=== PATIENT | female | born 1935 | race Caucasian/White ===

== ENCOUNTER 2020-11-25 17:59 | Inpatient (IN) | payer MEDICARE, OTHER ==
[~2020-11-25] VITALS: Ht 152.4 cm; Wt 51.7 kg
[~2020-11-25 17:59] MED LIST: ASPI-485 PO; CARB1TAB2 PO; LAMO100T8 PO; LEVO112T5 PO; METO-236 PO; OLAN5TAB5 SL; ROPI0.5T PO; SERT50TA PO; SIMV20TA19 PO; TOPI100T8 PO; TRIA1CAP3 PO; VIT1CAPS40 PO
--- NOTE | 2020-11-25 18:59 | PCM.EKG ---
[facility] Test Date: 2020-11-25 Test Time: 18:52:16 Pat Name: RADHA GUTIÉRREZ Department: Patient ID: [facility]-[id number] Room: 212 Gender: F Unit Control Worker: ARIE : [id number] Requested By: RENARD HIGGINS Order Number: [id number] Reading MD: Lisha Higgins Measurements Intervals [place] Rate: 69 P: 155 VT: 235 QRS: -4 QRSD: 108 T: 75 QT: 429 QTc: 460 Interpretive Statements Sinus or ectopic atrial rhythm Prolonged VT interval Probable LVH with secondary repol abnrm Compared to ECG 04/25/2019 20:21:27 Ectopic atrial rhythm now present First degree AV block now present Sinus rhythm no longer present T-wave abnormality no longer present Possible ischemia no longer present Prolonged QT interval no longer present Electronically Signed On 11-26-2020 4:31:14 [employer] by Lisha Higgins Please click the below link to view image of tracing.
[2020-11-25 19:13] VITALS: BP 156/68
[2020-11-25 19:17] LABS: BASOPHIL # 0.1 10^3/uL (0.0-0.1); EOSINOPHIL # 0.1 10^3/uL (0.0-0.2); EOSINOPHIL % 2.1 % (0.0-5.0); LYMPHOCYTES # 1.85 10^3/uL1 (1.0-4.8); LYMPHOCYTES % 30.1 % (24.0-44.0); MEAN CORP HGB 30.8 pg (26-34); MONOCYTES # 0.6 10^3/uL (0.3-0.8); MONOCYTES % 9.6 % (5.0-12.0); NEUTROPHIL # 3.5 10^3/uL (1.8-7.7); NEUTROPHILS % 56.7 % (41.0-85.0); PLATELET COUNT 173 10^3/uL (150-400); RED CELL DISTRIBUTION WIDTH 14.4 % (11.5-14.5)
--- NOTE | 2020-11-25 19:28 | NUR ---
URINE COLLECTED AND TAKEN TO LAB
[2020-11-25 19:43] LABS: ALANINE AMINOTRANSFERASE(ML) 18 U/L (12-78); ALKALINE PHOSPHATASE 156 U/L (50-136); ASPARTATE AMINO TRANSFERASE 24 U/L (0-35); CARBON DIOXIDE 26.3 mmol/L (20.0-32); CHOLESTEROL 180 mg/dL (120-240); GLUCOSE 120 mg/dL (70-110); HDL CHOLESTEROL 84 mg/dL (32-96)
[2020-11-25] MEDS ORDERED: HYDR12.58 PO (19:45)
[2020-11-25] MEDS ORDERED: FLUT16SP (19:45)
[2020-11-25] MEDS ORDERED: LEVO125T6 PO (19:45)
[2020-11-25] MEDS ORDERED: LAMO25TA9 PO (19:45)
[2020-11-25] MEDS ORDERED: TOPI100T8 PO (19:45)
[2020-11-25] MEDS ORDERED: LAMO100T8 PO (19:45)
[2020-11-25] MEDS ORDERED: PRIM50TA34 PO (19:45)
[2020-11-25] MEDS ORDERED: BUSP5TAB2 PO (19:45)
[2020-11-25] MEDS ORDERED: CARB1TAB22 PO (19:45)
[2020-11-25 19:50] LABS: APPEARANCE,URINE CLEAR (CLEAR); BILIRUBIN,URINE NEGATIVE (NEGATIVE); UA COLOR YELLOW (YELLOW); UROBILINOGEN,URINE NORMAL (NEGATIVE)
[2020-11-25 20:15] VITALS: BP 150/68
--- NOTE | 2020-11-25 20:16 | ER.PDOC ---
General Chief Complaint: Medical Clearance Stated Complaint: MED CLEARANCE Time seen by MD: 20:13 Source: patient, family Exam Limitations: no limitations History of Present Illness Initial Comments Family states patient is becoming increasingly combative. She will only take her routine medications sporadically. Timing/Duration: week Associated Symptoms: Frustrated, Agitated, Hostile Allergies: Coded Allergies: Penicillins (Verified Allergy, Unknown, Rash, 04/25/19) adhesive tape (Verified Allergy, Unknown, 04/25/19) bacitracin (Verified Allergy, Unknown, 04/25/19) codeine (Verified Allergy, Unknown, 04/25/19) lisinopril (Verified Allergy, Unknown, 04/25/19) tramadol (Verified Allergy, Unknown, 04/25/19) Home Meds Reported Medications Levothyroxine Sodium (LEVOTHYROXINE SODIUM) 125 Mcg Tablet, 1 TAB PO DAILY, #30 TAB 5 Refills 11/25/20 Lamotrigine (LAMOTRIGINE) 100 Mg Tablet, 1 TAB PO DAILY, #30 TAB 11/25/20 Lamotrigine (LAMOTRIGINE) 25 Mg Tablet, 2 TAB PO HS, #60 TAB 11/25/20 Topiramate (TOPIRAMATE) 100 Mg Tablet, 1 TAB PO BID for 30 Days, #60 TAB 0 Refills 11/25/20 Primidone (MYSOLINE) 50 Mg Tablet, 1 TAB PO BID for 30 Days, #30 TAB 0 Refills 11/25/20 Fluticasone Propionate (FLUTICASONE PROPIONATE) 16 Gm [place].susp, 1 SPR NA DAILY, #1 INHALER 11 Refills 11/25/20 Carbidopa/Levodopa (CARBIDOPA-LEVODOPA 25-100 TAB) 1 Each Tablet, 1 TAB PO TID for 30 Days, #90 TAB 0 Refills 11/25/20 Buspirone Hcl (BUSPIRONE HCL) 5 Mg Tablet, 1 TAB PO BID, #60 TAB 2 Refills 11/25/20 Simvastatin (SIMVASTATIN) 20 Mg Tablet, 1 TAB PO HS, #30 TAB 5 Refills 04/25/19 Vit C/E/Zn/Coppr/Lutein/Zeaxan (Preservision Areds 2 Softgel) 1 Each Capsule, 1 EACH PO DAILY24, CAPSULE 04/25/19 Metoprolol Succinate (METOPROLOL SUCCINATE) 25 Mg Tab.er.24h, 1 TAB PO DAILY, #30 TAB 5 Refills 04/25/19 Aspirin (ASPIR 81) 81 Mg Tablet.dr, 1 TAB PO DAILY, #30 TAB 5 Refills 04/25/19 Discontinued Reported Medications Hydrochlorothiazide (HYDROCHLOROTHIAZIDE) 12.5 Mg Tablet, 1 TAB PO DAILY, #30 TAB 5 Refills 11/25/20 Ropinirole Hcl (REQUIP) 0.5 Mg Tablet, 1 TAB PO TID, #30 TAB 1 Refill 04/25/19 Topiramate (TOPIRAMATE) 100 Mg Tablet, 1 TAB PO BID, #60 TAB 1 Refill 04/25/19 Lamotrigine (LAMOTRIGINE) 100 Mg Tablet, 125 MG PO DAILY24, TABLET 04/25/19 Levothyroxine Sodium (LEVOTHYROXINE SODIUM) 112 Mcg Tablet, 1 TAB PO DAILY, #30 TAB 5 Refills 04/25/19 Discontinued Scripts Olanzapine (ZYPREXA ZYDIS) 5 Mg Tab.rapdis, 5 MG SL HS for 30 Days Prov:SHIRA 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 05/15/19 Past Medical History Medical History: cardiac problems, high cholesterol, hypertension, thyroid disease Surgical History: cholecystectomy, hysterectomy, pacemaker/ICD Family History Significant Family History: no pertinent family hx Social History Smoking: non-smoker Alcohol Use: none Drug Use: none Review of Systems Constitutional: denies no symptoms reported, denies see HPI, denies chills, denies diaphoresis, denies fever, denies malaise, denies weakness, denies other EENTM: denies no symptoms reported, denies see HPI, denies eye pain, denies blurred vision, denies tearing, denies double vision, denies ear pain, denies ear discharge, denies nose pain, denies nose congestion, denies throat pain, denies throat swelling, denies mouth pain, denies mouth swelling, denies other Respiratory: denies no symptoms reported, denies see HPI, denies cough, denies orthopnea, denies shortness of breath, denies stridor, denies wheezing, denies other Cardiovascular: denies no symptoms reported, denies see HPI, denies chest pain, denies edema, denies palpitations, denies syncope, denies other Gastrointestinal: denies no symptoms reported, denies see HPI, denies abdominal pain, denies constipation, denies diarrhea, denies nausea, denies vomiting, denies other Genitourinary: denies no symptoms reported, denies see HPI, denies discharge, denies dysuria, denies frequency, denies hematuria, denies pain, denies other Musculoskeletal: denies no symptoms reported, denies see HPI, denies back pain, denies gout, denies joint pain, denies joint swelling, denies muscle pain, denies muscle stiffness, denies neck pain, denies other Skin: denies no symptoms reported, denies see HPI, denies change in color, denies change in hair/nails, denies dryness, denies lesions, denies lumps, denies rash, denies other Psychiatric/Neurological: seizure (this morning) All Other Systems: Reviewed and Negative Physical Exam General Appearance: No acute distress, Alert EENT: No nystagmus, PERRLA, EOM's intact Neck: Non-Tender, Full Range of Motion, Supple, Normal Inspection Respiratory: lungs clear, normal breath sounds, no respiratory distress, no accessory muscle use Cardiovascular: Regular Rate, Rhythm, No Murmur Gastrointestinal: Normal Bowel Sounds, Non Tender Extremities: Non-Tender, No Evidence of Trauma, No Edema Neurological/Psychiatric: Alert, Normal Mood/Affect, Calm Appearance/Memory/Insight: Appropriate Appearance, Neat Behavior/Eye Contact/Speech: Cooperative, Good Eye Contact Thoughts/Hallucinations: No Apparent Hallucination, Other (oriented x 2) Skin: Normal Color, Warm/Dry Results/Orders Results/Orders Orders - RENARD TORO DO Cbc With Auto Diff (11/25/20 18:39) Comprehensive Metabolic Panel (11/25/20 18:39) Urinalysis (11/25/20 18:39) Thyroid Stimulating Horm(Ml) (11/25/20 18:39) Drug Scrn Med W Confirmation (11/25/20 18:39) Vitamin D, 25 Hydroxy (11/25/20 18:39) RPR (11/25/20 18:39) Hemoglobin A1c(Ml) (11/25/20 18:39) Lipid Panel(Ml) (11/25/20 18:39) Troponin I (11/25/20 18:39) Creatine Kinase (11/25/20 18:39) Creatine Kinase Mb (11/25/20 18:39) Probnp B-Type Department Store General Manager (11/25/20 18:39) Alcohol(Ml) (11/25/20 18:39) Acetaminophen(Ml) (11/25/20 18:39) Salicylate(Ml) (11/25/20 18:39) Ekg-Routine (11/25/20 18:39) Urine Culture (11/25/20 19:00) Routine Vital Signs (11/25/20 20:57) Regular Diet (11/26/20 Breakfast) Intake & Output (11/25/20 20:57) Up Ad Fauzia/Low Risk Vte (11/25/20 20:57) Up In Chair (11/25/20 20:57) Admit Orders (11/25/20 20:57) Physician Consult (11/25/20 20:57) Vital Signs Date Time Temp Pulse Resp B/P (MAP) Pulse Ox O2 Delivery O2 Flow Rate FiO2 11/25/20 20:15 97.9 66 16 150/68 (95) 97 Room Air 11/25/20 19:13 97.9 67 16 156/68 (97) 99 Room Air 11/25/20 19:13 97.9 67 16 99 11/25/20 19:13 97.9 67 16 Laboratory Tests Test 11/25/20 19:00 11/25/20 19:10 Urine Collection Type VOID Urine Color YELLOW (YELLOW) Urine Appearance CLEAR (CLEAR) Urine Bilirubin NEGATIVE MG/DL (NEGATIVE) Urine Ketones NEGATIVE (NEGATIVE) Urine Specific [place] 1.010 (1.005-1.035) Urine pH 6.0 (5.0-6.0) Urine Protein TRACE (NEGATIVE) H Urine Urobilinogen NORMAL (NEGATIVE) Urine Nitrate NEGATIVE (NEGATIVE) Urine Leukocyte Esterase SMALL (NEGATIVE) Urine Blood NEGATIVE (NEGATIVE) Urine RBC 0-2 RBC/HPF (NONE SEEN) Urine WBC 10-25 WBC/HPF (0-2) H Urine Squamous Epithelial Cells FEW #/HPF (FEW) Urine Bacteria FEW (NONE SEEN) H Urine Glucose NORMAL (NEGATIVE) Urine Opiates Screen NEGATIVE (c/o300ng/mL) Urine Methadone Screen NEGATIVE (c/o300ng/mL) Urine Barbiturates Screen PRESUMPTIVE POSITIVE Urine Phencyclidine Screen NEGATIVE (c/o 25ng/mL) Ur Amphetamine/Methamphetamine NEGATIVE (gh8592zy/mL) Urine MDMA Screen (Ecstasy) NEGATIVE (c/o300ng/mL) Urine Benzodiazepines Screen NEGATIVE (c/o200ng/mL) Urine Cocaine Metabolite Screen NEGATIVE (c/o300ng/mL) Ur Tetrahydrocannabinol (THC) Scrn NEGATIVE (c/o 50ng/mL) White Blood Count 6.1 10^3/uL (4.5-11.0) Red Blood Count 4.32 10^6/uL (4.00-5.20) Hemoglobin 13.3 g/dL (12.0-15.0) Hematocrit 38.1 % (36.0-46.0) Mean Corpuscular Volume 88.2 fL (78-100) Mean Corpuscular Hemoglobin 30.8 pg (26-34) Mean Corpuscular Hemoglobin Concent 34.9 g/dL (33-36.5) Red Cell Distribution Width 14.4 % (11.5-14.5) Platelet Count 173 10^3/uL (150-400) Mean Platelet Volume 10.1 fL (7.8-11.0) Neutrophils (%) (Auto) 56.7 % (41.0-85.0) Lymphocytes (%) (Auto) 30.1 % (24.0-44.0) Monocytes (%) (Auto) 9.6 % (5.0-12.0) Neutrophils # (Auto) 3.5 10^3/uL (1.8-7.7) Lymphocytes # (Auto) 1.85 10^3/uL1 (1.0-4.8) Monocytes # (Auto) 0.6 10^3/uL (0.3-0.8) Absolute Immature Granulocyte (auto 0.03 10^3 u/L (0-2) Absolute Eosinophils (auto) 0.1 10^3/uL (0.0-0.2) Immature Granulocytes % 0.50 % (0.00-0.50) Eosinophils % 2.1 % (0.0-5.0) Basophils % 1.0 % (0.0-0.2) H Basophils # 0.1 10^3/uL (0.0-0.1) Sodium Level 129 mmol/L (132-145) #L Potassium Level 3.0 mmol/L (3.6-5.2) L Chloride Level 92.0 mmol/L (96-109) L Carbon Dioxide Level 26.3 mmol/L (20.0-32) Anion Gap 13.7 Blood Urea Nitrogen 18 mg/dL (7-18) Creatinine 1.06 mg/dL (0.59-1.40) Estimated GFR () 59.5 (>/=60) Est GFR (CKD-EPI)(Non-Afr English) 49.2 (>/=60) BUN/Creatinine Ratio 16.0 Glucose Level 120 mg/dL (70-110) H Hemoglobin A1c 5.4 % (0-5.7) Calcium Level 8.0 mg/dL (8.4-10.5) L Total Bilirubin 0.3 mg/dL (0.2-1.0) Aspartate Amino Transferase (AST) 24 U/L (0-35) Alanine Aminotransferase (ALT) 18 U/L (12-78) Alkaline Phosphatase 156 U/L (50-136) H Total Creatine Kinase 124 U/L (26-192) Creatine Kinase MB 3.1 ng/mL (0.5-3.6) Troponin I < 0.02 ng/mL (0.00-0.05) Pro-B-Type Natriuretic Peptide 878 pg/mL (0-450) H Total Protein 7.4 g/dL (6.4-8.2) Albumin 3.9 g/dL (3.4-5.0) Globulin 3.5 Albumin/Globulin Ratio 1.114 Triglycerides Level 144 mg/dL (20-200) Cholesterol Level 180 mg/dL (120-240) LDL Cholesterol, Calculated 67.2 VLDL Cholesterol, Calculated 28.8 HDL Cholesterol 84 mg/dL (32-96) Cholesterol Ratio (LDL/HDL) 0.8 Cholesterol/HDL Ratio 2.025341 Thyroid Stimulating Hormone (TSH) 0.124 mIU/mL (0.358-3.740) Salicylates Level < 2.8 mg/dL (2.8-20.0) L Acetaminophen Level < 10 ug/mL (10-30) L Serum Alcohol < 3 mg/dL (0-50) Progress Progress sodium slightly low 129; TSH suppressed 0.124 EKG/XRAY/CT/US EKG Comments: sinus rhythm, VR 69, no acute STT changes Consult/PCP Time Consult/PCP Called: 20:57 Consult/PCP: Dr. Mosqueda Reason/Comments: will admit BHU, consult hospitalist ER DEPART Departure Time of Disposition: 20:57 Disposition: 09 ADMITTED INPATIENT Impression: Primary Impression: Combative behavior Additional Impressions: Delusional disorder Hyperthyroidism Condition: Stable Referrals: MICHELLE LEE MD (PCP) PRIMARY CARE PROVIDER Duration or Time Spent with Pa: 20 min Problem Qualifiers RENARD TORO DO Nov 25, 2020 20:16
--- NOTE | 2020-11-25 20:21 | NUR ---
UP TO RESTROOM PATIENT AMBULATED TO RESTROOM WITH WALKER WITH GRANDDAUGHTER, PATIENT BACK TO ROOM, NO NEEDS VOICED BY PATIENT OR GRANDDAUGHTER
[2020-11-25 21:20] VITALS: BP 148/68
--- NOTE | 2020-11-25 22:05 | NUR ---
ARRIVAL PATIENT ARRIVED ON UNIT FROM [facility] ACCOMPANIED BY SCARLETT ALBARADO R.N VIA WHEELCHAIR, PATIENT IS INVOLUNTARY STATUS.
[2020-11-25 22:15] VITALS: BP 160/72
--- NOTE | 2020-11-25 22:43 | PRM.CONS ---
CONSULTATION Problems: (1) Hyponatremia with decreased serum osmolality ICD Code: E87.1 - Hypo-osmolality and hyponatremia SNOMED: 481716567 (2) Hyponatremia syndrome Status: Chronic ICD Code: E87.1 - Hypo-osmolality and hyponatremia SNOMED: 3823660 (3) Hypokalemia due to loss of potassium Status: Chronic ICD Code: E87.6 - Hypokalemia SNOMED: 18913102 (4) Hypochloremia Status: Chronic ICD Code: E87.8 - Other disorders of electrolyte and fluid balance, not elsewhere classified SNOMED: 14420020 CONSULTATION patient is an 85-year-old female with history of diuretics intake including hydrochlorthiazide. Has mild hyponatremia along with hypokalmeia and hypochloremia due to HCTZ. will stop and discontinue hydrochlorthiazide and follow up with labs. most of the electrolyte abnormalities are due to diuretics. It should resolve with normal PO and take. Had a history of seizure disorder with side effects of Topamax. Will consider stopping Topamax and starting on Keppra. First dose will be 1 g IV times one only. Then we will start Keppra 500 mg twice a day and arrange a follow up with neurology if possible. since the TSH is slightly low we will decrease the levothyroxine down to 100 g and arrange follow up with primary care physician as an outpatient for follow-up and management of hypothyroidism. No further work up is warranted at this time. Full consultation and plans d/w MAG[facility] [place] please detailed consult notes from today final consult discussed 11/26/2020 at 9:13 am EWA TO MD Nov 25, 2020 22:43
--- NOTE | 2020-11-25 23:15 | NUR ---
dr teixeira, dr cano, hospitalist. dr teixeira and dr cano notified patient arrival to unit, reviewed potassium 3.0 and sodium 129. family who had brought patient in to e.r. reported patient has epilepsy, last seizure this am and lasted approximately 1.5 minutes.
[2020-11-26] MEDS ORDERED: BUSPAR ONE
[2020-11-26] MEDS ORDERED: SINEMET ONE (00:01)
[2020-11-26] MEDS ORDERED: MYSOLINE ONE (00:01)
[2020-11-26] MEDS ORDERED: LAMICTAL PO ONE (00:30)
[2020-11-26] MEDS ORDERED: MYSOLINE PO ONE (00:30)
[2020-11-26] MEDS ORDERED: SINEMET 25/100 PO ONE (00:30)
[2020-11-26] MEDS ORDERED: BUSPAR PO SCH (00:30)
[2020-11-26] MEDS ORDERED: BUSPAR PO ONE (00:30)
--- NOTE | 2020-11-26 01:00 | NUR ---
ADMISSION 85 YEAR OLD FEMALE ADMITTED INVOLUNTARY FOR DELUSIONAL DISORDER, PATIENT FROM [facility] AND WILL RETURN THERE, PATIENT UNSURE WHY SHE IS HERE, VOICES SOME PEOPLE THINK SHE IS HITTING BUT SHE IS JUST PATTING THEM. PATIENT HAS MEDICAL HX OF EPILEPSY FROM [facility] , LAST SEIZURE THIS AM AND LASTED APPROX. 1.5 MINUTES. PATIENT USES WALKER, IS DEMANDING, DIFFICULT TO PLEASE. PER REPORT PATIENT HAS NOT BEEN WANTING TO TAKE MEDS, THINKS SHE IS BEING POISONED, HAS BEEN HITTING STAFF AND RESIDENTS, THROWING HER WALKER, PULLING ON LANYARD AROUND STAFFS NECK. PATIENT DENIES ALL. PATIENTS FAMILY WORKS AT FACILITY SHE IS FROM. PATIENT HAS OOHDNR.FROM FACILITY. PATIENT IS ORIENTED X 3 BUT IS FORGETFUL.
[2020-11-26] MEDS ORDERED: SYNTHROID ONE ×2 (06:11→11:06)
[2020-11-26] MEDS: SYNTHROID PO SCH ×2 (06:12→09:00)
[2020-11-26 09:00] VITALS: BP 120/66
[2020-11-26] MEDS ORDERED: LAMICTAL PO SCH ×3 (09:00→21:00)
[2020-11-26] MEDS ORDERED: SINEMET 25/100 PO SCH (09:00)
[2020-11-26] MEDS ORDERED: KEPPRA PO STA (09:23)
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
[2020-11-26] MEDS: ASPIRIN EC PO SCH (10:00)
[2020-11-26] MEDS: TOPROL XL PO SCH (10:00)
[2020-11-26] MEDS: BUSPAR PO SCH ×2 (10:01→21:30)
[2020-11-26] MEDS: SINEMET 25/100 PO SCH ×3 (10:01→21:32)
[2020-11-26] MEDS ORDERED: POTASSIUM CHLORIDE PO STA (10:10)
[2020-11-26] MEDS: FLONASE NS SCH (11:07)
--- NOTE | 2020-11-26 15:42 | NUR ---
MMSE SCORE: 19: FINDINGS INDICATE MILD IMPAIRMENT. PT UNABLE TO COMPLETE WRITING ASSESSMENTS DUE TO TREMORS. Addendum: 11/29/20 at 1629 by Evangelina CHAUHAN Amended: Links added.
--- NOTE | 2020-11-26 16:01 | NUR ---
GMAS SCORE : FINDING INDICATE MILD DEPRESSION. Addendum: 11/29/20 at 1629 by Evangelina Mary LMSW SW Amended: Links added.
--- NOTE | 2020-11-26 16:30 | NUR ---
PIRP P: ALTERED THOUGHT PROCESS, RISK FOR FALLS, NON COMPLIANCE WITH MEDICATION I: PROVIDE MEDICATIONS ORDERED BY PHYSICIAN WITH EXPLANATION OF NEED PURPOSE.ENCOURAGE ATTENDANCE WITH GROUP THERAPY. PROVIDE SAFETY EQUIPMENT FOR AMBULATING. PROVIDE Q 15 MIN CHECKS. MONITOR PT FOR DEPRESSION, ANXIETY. 1:1 ALLOWING PT TO EXPRESS THOUGHTS AND FEELINGS. RE ORIENT AND RE DIRECT PT NEEDED. R: PATIENT HAS TAKEN ALL MEDICATIONS ORDERED HAS BEEN COOPERATIVE. PATIENT HAS ATTENDED ALL GROUPS TODAY HAS BEEN VERY COOPERATIVE WITH STAFF. PATIENT HAS TAKEN WALKER WITH HER EVERYWHERE SHE HAS WALKED. PT TENDS TO BE INTRUSIVE IN OTHER PTS BUSINESS. PT HAS BEEN ABLE TO BE RE DIRECTED AND RE ORIENTED NEEDED. P: PLAN TO DISCHARGE PT BACK TO [facility]. CONTINUE WITH PLAN OF CARE.
[2020-11-26 19:41] VITALS: BP 154/78
[2020-11-26] MEDS: KEPPRA PO SCH (21:31)
[2020-11-26] MEDS: LIPITOR PO SCH (21:32)
[2020-11-26] MEDS: KLOR-CON 10 PO SCH (21:32)
--- NOTE | 2020-11-27 04:51 | NUR ---
P.I.R.P. P. NON COMPLIANCE WITH MEDICATIONS. BEHAVIORS I. PROVIDE EVERY 15 MINUTE OBSERVATION, PROVIDE SAFE ENVIRONMENT, PROVIDE MEDICATIONS ORDERED PER MD, PROVIDE 1:1 INTERVENTION TO ALLOW PATIENT TO EXPRESS FEELINGS, REDIRECT NEEDED. PROVIDE TASK ORIENTED GROUP ACTIVITY AND ENCOURAGE PARTICIPATION. R. PATIENT TOOK MEDS ORDERED, DID LOOK OVER EACH MED AND DISCUSSED PURPOSE OF EACH. PATIENT ATTENDED GROUP ACTIVITY. HAS BEEN PLEASANT AND COOPERATIVE, IS ORIENTED. INTRUSIVENESS CONTINUES BUT NOTED DECREASED THIS SHIFT. PATIENT WOULD OCCASIONALLY TALK TO OTHER PATIENT ABOUT FINGER NAIL BITING AND BEING NERVOUS. NO PRN MEDS THIS SHIFT. NO BEHAVIORS, CONTINUES TO DECLINE TO WEAR YELLOW NON SKID SOCKS VOICING THEY HURT HER FEET. PATIENT DOES WEAR SHOES WITH NON SKID BOTTOM WHEN AMBULATING. EDUCATION CONTINUES REFERENCE FALLS AND PURPOSE OF NON SKID SOCKS. PATIENT WITH POOR BALANCE AT TIMES. P. CONTINUE CURRENT PLAN OF CARE
[2020-11-27 06:27] LABS: CALCIUM 8.6 mg/dL (8.4-10.5); CARBON DIOXIDE 28.5 mmol/L (20.0-32)
[2020-11-27 08:13] VITALS: BP 157/75
[2020-11-27] MEDS: SYNTHROID PO SCH (08:21)
[2020-11-27] MEDS ORDERED: SYNTHROID ONE (08:21)
[2020-11-27] MEDS: SINEMET 25/100 PO SCH ×4 (08:57→21:00)
[2020-11-27] MEDS: TOPROL XL PO SCH ×2 (08:58→10:06)
[2020-11-27] MEDS: KEPPRA PO SCH ×4 (08:58→21:00)
[2020-11-27] MEDS: ASPIRIN EC PO SCH (08:58)
[2020-11-27] MEDS: FLONASE NS SCH ×2 (08:58→10:05)
[2020-11-27] MEDS: BUSPAR PO SCH ×3 (08:58→21:00)
[2020-11-27] MEDS: KLOR-CON 10 PO SCH ×4 (08:58→21:00)
--- NOTE | 2020-11-27 10:13 | NUR ---
MEDICATIONS AT 0900 ATTEMPTED TO GIVE PT MEDICATIONS. PT BEGAN TO ASK WHAT EACH PILL WAS, BEGAN LOOKING AT PILLS SAYING "DOES THIS ONE HAVE A ELEVEN ON IT" "DOES THIS ONE HAVE A CURVE ON IT". WHEN PT AGREED WITH WHAT THE PILL WAS PT TOOK THE MEDICATION. PT TOOK THE ASPIRIN, CARBIDOPA, BUSPAR. DID NOT AGREE THAT KEPPRA WAS A MEDICATION SHE WAS ON. DID NOT UNDERSTAND WHY TAKING POTASSIUM. EXPLAINED TOPROL PT SAID "YOU TOLD ME THAT IS MY SEIZURE PILL". PT THEN BEGAN SAYING THAT THIS NURSE WAS THE NURSE FROM [place]. ATTEMPT TO EXPLAIN TO PT THAT HAVE NOT BEEN TO OR WORKED IN [facility]. BEEN HERE. PT SAID WILL NOT DO ANYTHING WITH PILLS TILL SOMEONE ELSE TELLS HER. JITENDRA ALEXANDER CAME AND ALSO ATTEMPTED TO EXPLAIN MEDICATIONS TO PT. WHEN EXPLAINING POTASSIUM TO PT PT BEGAN TALKING ABOUT CALCIUM. KEPT TALKING ABOUT CALCIUM EACH SAID POTASSIUM. WHEN YANELY, MUSIC THERAPY CAME IN AND PT WANTED HER TO COME VERY CLOSE TO HER. GOT UPSET WHEN SHE WOULD NOT, PT STATED THAT IF THINGS DID NOT START GOING HER WAY THEN THINGS WERE GOING TO HAPPEN. SOME YELLING, SCRATCHING AND COMMENTED ON THE PONYTAIL(ON YANELY) NOT BEING BACK THERE ANYMORE. STILL TRYING TO GET PT TO TAKE THE PILLS IN HER LEFT HAND. YANELY ENCOURAGED PT TO TAKE MEDICATIONS. PT SAID "I WILL IF YOU COME OVER HERE". YANELY LEFT THE ROOM SAYING BE BACK WHEN SHE TOOK MEDICATIONS. PT ACCUSED NURSE OF MAKING HER LEAVE. EXPLAINED THAT SHE LEFT TILL SHE TAKES MEDICATION. PT SAID "I WILL WHEN SHE COMES BACK". EXPLAINED THAT IS WHY SHE WON'T. MEDICATION REMOVED FROM PT. YANELY BACK IN ROOM. REPORTED TO RN
--- NOTE | 2020-11-27 11:56 | NUR ---
LUNCH LUNCH TRAY SERVED TO PT. PT BEGAN COMPLAINING OF THE CHICKEN IN SALAD BEING HARD. THIS NURSE ABLE TO VERY EASILY CUT WITH A KNIFE. PT HOLDING A PIECE IN BETWEEN FINGERS AND WANTED THAT PIECE TESTED. EXPLAINED TO PT THAT WAS NOT GOING TO TOUCH HER FOOD. PT BEGAN THROWING FOOD ON THE FLOOR. TRAY REMOVED FROM IN FRONT OF PT WHEN PT STATED SHE WOULD NOT STOP THROWING FOOD. PT THEN STATED SHE WANTED TO TALK TO HER NURSE. NAMING THIS NURSE HER NURSE. YANELY AND THIS NURSE BOTH ATTEMPTED TO EXPLAIN WHO PT WAS LOOKING FOR. PT SAID "OH NO YOU AREN'T. I KNOW HOW YOU GUYS CAN JUST PUT NAMES ON THINGS." PT BEGAN TALKING ABOUT "NURSE YESTERDAY". BENJAMIN RN ASKED TO TALK WITH PT TO TRY AND EXPLAIN NURSES TO PT.
--- NOTE | 2020-11-27 14:16 | DIET.OP ---
Nutrition Asmt/Malnutrit 2-17 Actual Date of Review: Nov 27, 2020 Nutritional Screening: Nutritional Screening Diagnosis: Delusional Disorder Pertinent Medical Hx/Surgical: epilepsy, pacemaker, dementia, hypothyroidism Subjective Information: telehealth assessment due to indication of mild to moderate fat and muscle loss and mild edema on admisison assessment. Pt is a resident of SNF admitted for worsening agression. Pt denies reduced po intake or recent wt loss. Pt is a picky eater per RN. She had incident at lunch where she did not like the chicken so she began throwing food on the floor. Current Diet Order/Nutrition S: Regular Diet Patient /S.O: Not Indicated Pertinent Meds Current Medications Medications (Trade) Dose Ordered Sig/Stacy Route PRN Reason Start Time Stop Time Status Last Admin Dose Admin Aspirin (Aspirin Ec) 81 mg DAILY PO 11/26/20 09:00 12/26/20 08:59 11/27/20 08:58 Carbidopa/Levodopa (Sinemet 25/100) 1 each TID PO 11/26/20 09:00 11/26/20 00:04 DC Fluticasone Propionate (Flonase) 1 sprays DAILY NS 11/26/20 09:00 12/22/20 00:00 11/26/20 11:07 Levothyroxine Sodium (Synthroid) 100 mcg DAILY PO 11/26/20 06:30 11/27/20 08:27 DC 11/27/20 08:21 Metoprolol Succinate (Toprol Xl) 25 mg DAILY PO 11/26/20 09:00 12/26/20 08:59 11/26/20 10:00 Lamotrigine (Lamictal) 50 mg HS PO 11/26/20 21:00 11/26/20 00:04 DC Lamotrigine (Lamictal) 100 mg DAILY PO 11/26/20 09:00 11/26/20 09:25 DC Buspirone HCl (Buspar) 5 mg STK-MED ONCE .ROUTE 11/26/20 00:00 11/26/20 00:00 DC Carbidopa/Levodopa (Sinemet 25/250 Tab) 1 each STK-MED ONCE .ROUTE 11/26/20 00:01 11/26/20 00:01 DC Primidone (Mysoline) 50 mg STK-MED ONCE .ROUTE 11/26/20 00:01 11/26/20 00:01 DC Carbidopa/Levodopa (Sinemet 25/100) 1 each TID PO 11/26/20 09:00 12/26/20 08:59 11/27/20 08:57 Lamotrigine (Lamictal) 50 mg HS PO 11/26/20 21:00 11/26/20 09:25 DC Atorvastatin Calcium (Lipitor) 10 mg HS PO 11/26/20 21:00 12/26/20 20:59 11/26/20 21:32 Lamotrigine (Lamictal) 50 mg OT ONCE PO 11/26/20 00:30 11/26/20 09:25 DC 11/26/20 00:30 Carbidopa/Levodopa (Sinemet 25/100) 1 each OT ONCE PO 11/26/20 00:30 11/26/20 03:13 DC 11/26/20 00:30 Primidone (Mysoline) 150 mg OT ONCE PO 11/26/20 00:30 11/26/20 03:08 DC 11/26/20 00:45 Buspirone HCl (Buspar) 5 mg BID PO 11/26/20 00:30 11/26/20 01:04 DC Buspirone HCl (Buspar) 5 mg BID PO 11/26/20 09:00 12/26/20 08:59 11/27/20 08:58 Buspirone HCl (Buspar) 5 mg OT ONCE PO 11/26/20 00:30 11/26/20 03:02 DC 11/26/20 00:30 Levothyroxine Sodium (Synthroid) 100 mcg STK-MED ONCE .ROUTE 11/26/20 06:11 11/26/20 06:11 DC Levetiracetam (Keppra) 1,000 mg STAT STAT PO 11/26/20 09:23 11/26/20 09:43 DC 11/26/20 10:00 Levetiracetam (Keppra) 500 mg BID PO 11/26/20 21:00 12/26/20 20:59 11/26/20 21:31 Potassium Chloride (Potassium Chloride) 40 meq STAT STAT PO 11/26/20 10:10 11/26/20 10:32 DC 11/26/20 11:07 Potassium Chloride (Klor-Con 10) 20 meq BID PO 11/26/20 21:00 11/27/20 22:00 11/26/20 21:32 Levothyroxine Sodium (Synthroid) 100 mcg STK-MED ONCE .ROUTE 11/26/20 11:06 11/26/20 11:06 DC Levothyroxine Sodium (Synthroid) 100 mcg STK-MED ONCE .ROUTE 11/27/20 08:21 11/27/20 08:21 DC Levothyroxine Sodium (Synthroid) 100 mcg ACB PO 11/28/20 06:30 12/28/20 06:29 Pertinent Labs Laboratory Tests Test 11/25/20 19:00 11/25/20 19:10 11/27/20 06:03 Urine Collection Type VOID Urine Color YELLOW Urine Appearance CLEAR Urine Bilirubin NEGATIVE MG/DL Urine Ketones NEGATIVE Urine Specific [place] 1.010 Urine pH 6.0 Urine Protein TRACE Urine Urobilinogen NORMAL Urine Nitrate NEGATIVE Urine Leukocyte Esterase SMALL Urine Blood NEGATIVE Urine RBC 0-2 RBC/HPF Urine WBC 10-25 WBC/HPF Urine Squamous Epithelial Cells FEW #/HPF Urine Bacteria FEW Urine Glucose NORMAL Urine Opiates Screen NEGATIVE Urine Methadone Screen NEGATIVE Urine Barbiturates Screen PRESUMPTIVE POSITIVE Urine Phencyclidine Screen NEGATIVE Ur Amphetamine/Methamphetamine NEGATIVE Urine MDMA Screen (Ecstasy) NEGATIVE Urine Benzodiazepines Screen NEGATIVE Urine Cocaine Metabolite Screen NEGATIVE Ur Tetrahydrocannabinol (THC) Scrn NEGATIVE White Blood Count 6.1 10^3/uL Red Blood Count 4.32 10^6/uL Hemoglobin 13.3 g/dL Hematocrit 38.1 % Mean Corpuscular Volume 88.2 fL Mean Corpuscular Hemoglobin 30.8 pg Mean Corpuscular Hemoglobin Concent 34.9 g/dL Red Cell Distribution Width 14.4 % Platelet Count 173 10^3/uL Mean Platelet Volume 10.1 fL Neutrophils (%) (Auto) 56.7 % Lymphocytes (%) (Auto) 30.1 % Monocytes (%) (Auto) 9.6 % Neutrophils # (Auto) 3.5 10^3/uL Lymphocytes # (Auto) 1.85 10^3/uL1 Monocytes # (Auto) 0.6 10^3/uL Absolute Immature Granulocyte (auto 0.03 10^3 u/L Absolute Eosinophils (auto) 0.1 10^3/uL Immature Granulocytes % 0.50 % Eosinophils % 2.1 % Basophils % 1.0 % Basophils # 0.1 10^3/uL Sodium Level 129 mmol/L 138 mmol/L Potassium Level 3.0 mmol/L 3.2 mmol/L Chloride Level 92.0 mmol/L 100.0 mmol/L Carbon Dioxide Level 26.3 mmol/L 28.5 mmol/L Anion Gap 13.7 12.7 Blood Urea Nitrogen 18 mg/dL 21 mg/dL Creatinine 1.06 mg/dL 0.88 mg/dL Estimated GFR () 59.5 73.7 Est GFR (CKD-EPI)(Non-Afr [place]) 49.2 60.9 BUN/Creatinine Ratio 16.0 23.0 Glucose Level 120 mg/dL 101 mg/dL Hemoglobin A1c 5.4 % Calcium Level 8.0 mg/dL 8.6 mg/dL Total Bilirubin 0.3 mg/dL Aspartate Amino Transf (AST/SGOT) 24 U/L Alanine Aminotransferase (ALT/SGPT) 18 U/L Alkaline Phosphatase 156 U/L Total Creatine Kinase 124 U/L Creatine Kinase MB 3.1 ng/mL Troponin I < 0.02 ng/mL Pro-B-Type Natriuretic Peptide 878 pg/mL Total Protein 7.4 g/dL Albumin 3.9 g/dL Globulin 3.5 Albumin/Globulin Ratio 1.114 Triglycerides Level 144 mg/dL Cholesterol Level 180 mg/dL LDL Cholesterol, Calculated 67.2 VLDL Cholesterol, Calculated 28.8 HDL Cholesterol 84 mg/dL Cholesterol Ratio (LDL/HDL) 0.8 Cholesterol/HDL Ratio [id number] 25-Hydroxy Vitamin D Total 14.6 ng/mL Thyroid Stimulating Hormone (TSH) 0.124 mIU/mL Salicylates Level < 2.8 mg/dL Acetaminophen Level < 10 ug/mL Urine Barbiturate Confirmation Serum Alcohol < 3 mg/dL Height (Feet): 5 Height (Inches): 0 Current Weight: 115 Usual Weight: 105 %UBW: 109 %IBW: 115 Recent Weight Change: Yes (15# wt increase since last visit 1.5 years ago) Weight Status: Appropriate GI Symptoms: Last BM (pt reports day before arrived. ) GI Comments normal bowel sounds per RN Food Allergies: No Cultural/Ethnic/Buddhism Bobbi: None reported Current %PO: 0-85% Calories/Kcals/Kg: MsJ * 1.2-1.3 Kcals Calculated: 3975-1381 kcal Protein: Use Current Weight Protein g/k.8-1.0 g/kg Protein Calculated: 42g-52g Fluid: ml: 9688-6239 ml or 1ml/kcal Nutritional Problem: Nutr. Problems Present Problems: inadequate oral intake Etiology: picky eater, dentition Signs/Symptoms: varied po intake of 0-85% of meals not meeting needs RD Comments: 1. Continue regular diet, mechanical soft as needed for difficulty chewing. Encourage po intake at meals and snacks. 2. RD to monitor po intake to ensure it is adequate. Expected Outcomes 60-100% po intake of most meals to meet nutrition needs. Discharge on regular diet Malnutrtion/Nutrition Risk Edu: No MD Notificiation Needed?: No Yecenia Lujan Nov 27, 2020 14:16
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
--- NOTE | 2020-11-27 16:26 | NUR ---
TELEMED PT WAS SEEN BY Alyson PANDEY NP. RECEIVED ORDERS FOR SCHEDULED AND PRN ZYPREXA, SEE EMR.
[2020-11-27] MEDS ORDERED: ZYPREXA IM PRN (16:30)
[2020-11-27] MEDS ORDERED: ZYPREXA ZYDIS SL PRN (16:30)
--- NOTE | 2020-11-27 18:06 | NUR ---
PIRP P: ALTERED THOUGHT PROCESS, ALTERATION IN MOOD, FALL RISK, NONCOMPLIANCE WITH MEDICATION I: Q15 MIN MONITORING, ASSESS FOR PSYCHOTIC SYMPTOMS, ASSIST WITH DIFFERENTIATING BETWEEN INTERNAL AND EXTERNAL REALITY, GIVE CLEAR AND SIMPLE INSTRUCTIONS, PROVIDE TASK-ORIENTED ACTIVITIES, PROVIDE SAFE AND SUPPORTIVE ENVIRONMENT, REINFORCE MEDICATION EDUCATION, SET CLEAR AND APPROPRIATE BOUNDARIES, ALTERNATE REST/ACTIVITY, PROVIDE 1:1 TO ENCOURAGE EXPRESSION OF FEELINGS, ASSESS REASONS FOR IRRITABILITY, REINFORCE FALL PREVENTION TECHNIQUES R: PT HAS LABILE AFFECT THROUGHOUT SHIFT, EXHIBITS INTRUSIVE BEHAVIORS. DOES NOT INTERACT APPROPRIATELY WITH STAFF AND PEERS, MAKES INAPPROPRIATE COMMENTS ABOUT STAFF APPEARANCES, ATTEMPTS TO TELL PEERS WHAT TO DO, AND IS UNABLE TO BE REDIRECTED WITH VERBALIZATION D/T TALKING/YELLING OVER STAFF IF NOT AGREEING WITH WHAT IS SAID. FREQUENTLY RAMBLES, EXHIBITS BROADCASTING AND ECHOLALIA AT TIMES, AND APPEARS TO HAVE ATTENTION-SEEKING BEHAVIORS. HAS THREATENED STAFF, BUT HAS NOT BEEN COMBATIVE/AGITATED. HAS PARTICIPATED IN SOME GROUP ACTIVITIES WITH PROMPTING AND REDIRECTION. REFUSED SOME MEDICATIONS THIS A.M. D/T BELIEVING STAFF WERE TRYING TO POISON HER, STATED STAFF WERE PURPOSELY TRYING TO CONFUSE PATIENTS SO THAT THEY COULD BE TAKEN FROM THEIR HOMES AND "PUT SOMEWHERE ELSE." PT DEPENDENT AT TIMES, REPORTS SHE IS UNABLE TO PERFORM TASKS SUCH OPENING PLASTIC SILVERWARE PACKAGING D/T HER ESSENTIAL TREMORS, BUT WHEN STAFF IS NOT PRESENT, PT DOES NOT EXHIBIT ANY PROBLEMS PERFORMING SUCH TASKS. HAS REQUIRES STANDBY ASSIST THIS SHIFT D/T POOR BALANCE WHEN AMBULATING. P: PROVIDE POSITIVE FEEDBACK ON APPROPRIATE BEHAVIOR, GIVE MEDICATIONS ORDERED, SET APPROPRIATE BOUNDARIES
[2020-11-27 19:20] VITALS: BP 150/54
--- NOTE | 2020-11-27 19:50 | NUR ---
SAFETY/YELLOW NON SKID SOCKS. PATIENT CONTINUES TO REFUSE TO WEAR YELLOW NON SKID SOCKS FOR FALL PREVENTION, DOES WEAR HER TENNIS TYPE SHOES THAT HAVE HEAT TRANSFER TECHNICIAN SOLES WHEN UP.
[2020-11-27] MEDS: ZYPREXA ZYDIS SL SCH ×2 (20:55→21:00)
[2020-11-27] MEDS: LIPITOR PO SCH ×2 (20:55→21:00)
--- NOTE | 2020-11-27 22:13 | NUR ---
MEDICATION REFUSAL PT REFUSES TO TAKE ALL 2100 MEDICATIONS INCLUDING CARBIDOPA LEVODOPA AND KEPPRA. CHARGE NURSE JITENDRA WILDER AND THIS NURSE SPOKE TO PT ON 2 SEPARATE OCCASIONS EACH WITH NO SUCCESS AT GETTING PT TO TAKE MEDICATIONS. DR TO NOTIFIED AT THIS TIME. INSTRUCTS TO WATCH PT DUE TO PT HAVING A SEIZURE ON Wednesday. NO NEW ORDERS RECEIVED AT THIS TIME.
[2020-11-28] MEDS: SYNTHROID PO SCH (05:55)
--- NOTE | 2020-11-28 06:10 | NUR ---
P.I.R.P. P. ALTERATION IN THOUGHT PROCESS I. PROVIDE EVERY 15 MINUTE OBSERVATION, SAFE ENVIRONMENT, MEDICATIONS ORDERED PER MF, TASK ORIENTED GROUP ACTIVITY AND 1:1 INTERVENTION TO ALLOW PATIENT PATIENT TO EXPRESS FEELINGS. REDIRECT NEEDED. R. PATIENT REFUSED ALL HS MEDICATIONS , HOSPITALIST DR TO WAS MADE AWARE. PATIENT HAD NO PRN MEDICATIONS THIS SHIFT, WAS INTRUSIVE AT TIMES AND ARGUMENTATIVE ABOUT MEDS AND TIME OF DAY. PATIENT WAS CONFUSED OF TIME OF DAY. DENIES ANXIETY OR DEPRESSION. P. CONTINUE CURRENT PLAN OF CARE
[2020-11-28 06:38] LABS: BASOPHIL % 0.5 % (0.0-0.2); EOSINOPHIL # 0.2 10^3/uL (0.0-0.2); EOSINOPHIL % 2.3 % (0.0-5.0); LYMPHOCYTES # 1.77 10^3/uL1 (1.0-4.8); LYMPHOCYTES % 27.1 % (24.0-44.0); MEAN CORP HGB 30.4 pg (26-34); MONOCYTES # 0.6 10^3/uL (0.3-0.8); MONOCYTES % 8.9 % (5.0-12.0); RED CELL DISTRIBUTION WIDTH 14.5 % (11.5-14.5)
[2020-11-28 06:43] LABS: CALCIUM 8.7 mg/dL (8.4-10.5); CARBON DIOXIDE 26.7 mmol/L (20.0-32)
[2020-11-28 07:50] VITALS: BP 128/96
[2020-11-28] MEDS: KEPPRA PO SCH ×2 (08:08→20:16)
[2020-11-28] MEDS: BUSPAR PO SCH ×2 (08:09→20:17)
[2020-11-28] MEDS: ASPIRIN EC PO SCH (08:09)
[2020-11-28] MEDS: TOPROL XL PO SCH (08:10)
[2020-11-28] MEDS: SINEMET 25/100 PO SCH ×3 (08:10→20:16)
[2020-11-28] MEDS: FLONASE NS SCH (09:00)
--- NOTE | 2020-11-28 10:04 | NUR ---
TX TEAM PT WAS SEEN BY DR. GOMEZ VIA TELEMEDICINE. NO NEW ORDERS RECEIVED AT THIS TIME.
--- NOTE | 2020-11-28 10:13 | PRM.PN ---
Mood: "good" Sleep: 4.75 hrs Appetite: good Suidical thoughts: denies Homicidal thoughts: denies Recent stressors: being inpatient Family support: does not like granddaughter Aggressive Behavior: intrusive/rude Ability to Perform ADL'sc: with assistance Psychotic sympstoms: non-bizarre delusions about granddaughter/SNF Manic Symptoms: intrusive Living situation: SNF Anxity Symptoms: denies Anger/Irritablility: denies Appearance: Well groomed/hygience, Appears age stated Attitude & Behaviour: Cooperative/Pleasant, Good eye contact Mood & Affect: Euthymic/appr/congruent Orientation: Fully oriented per interv Attention/Concentration: Fair attention, Fair concentration Speech: Impaired Judgement/Insight: Poor judgement, Fair insight Thought Process: Circumferential Language: French Thought content/Abnormal/Psych: Delusions Fund of Knowledge: WNL Associations: WNL/Normal Associations Memory (recent and remote): Gross int/not form assess Constitutional: None Neurological: None Psychiatric: None [place] I: Delusional Disorder, Neurocognitive disorder Assessment/Plan Assessment/Plan Assessment/Plan Nursing: Intrusive, rude - attention seeking behaviors Finally took Keppra today Slept 4.75 hours Patient: Patient reports that she feels "fine" and inquires about going back to SNF, states "they only sent me here for 3 days for an evaluation." She states that her granddaughter controls everything, does not like her; she also states that SNF is messing with her, "I asked them to remove a chair from my room, and they never did ... it was still there when they brought me here." Vital Signs Date Time Temp Pulse Resp B/P (MAP) Pulse Ox O2 Delivery O2 Flow Rate FiO2 11/27/20 08:13 98.2 64 20 157/75 (102) 97 Room Air Current Medications Medications (Trade) Dose Ordered Sig/Stacy PRN Reason Start Time Stop Time Status Last Admin Aspirin (Aspirin Ec) 81 mg DAILY 11/26/20 09:00 12/26/20 08:59 11/27/20 08:58 Atorvastatin Calcium (Lipitor) 10 mg HS 11/26/20 21:00 12/26/20 20:59 11/26/20 21:32 Buspirone HCl (Buspar) 5 mg BID 11/26/20 09:00 12/26/20 08:59 11/27/20 08:58 Carbidopa/Levodopa (Sinemet 25/100) 1 each TID 11/26/20 09:00 12/26/20 08:59 11/27/20 14:28 Fluticasone Propionate (Flonase) 1 sprays DAILY 11/26/20 09:00 12/22/20 00:00 11/26/20 11:07 Levetiracetam (Keppra) 500 mg BID 11/26/20 21:00 12/26/20 20:59 11/26/20 21:31 Levothyroxine Sodium (Synthroid) 100 mcg ACB 11/28/20 06:30 12/28/20 06:29 Metoprolol Succinate (Toprol Xl) 25 mg DAILY 11/26/20 09:00 12/26/20 08:59 11/26/20 10:00 Potassium Chloride (Klor-Con 10) 20 meq BID 11/26/20 21:00 11/27/20 22:00 11/26/20 21:32 CONSENT: Consent was obtained by patient for telemedicine visit. Consent was obtained for the presence of staff member throughout encounter. Privacy was maintained throughout encounter Assessment: 85 yo F, hx of Delusional Disorder, admitted to [facility] for worsening paranoia/behaviors. Patient with continued non-bizarre delusions about granddaughter/SNF, tolerating Zyprexa. Some of her behaviors (intrusiveness) may be volitional/attention-seeking. Patient History: Patient reports no known family medical history. Plan 1. CONTINUE BEHAVIORAL HEALTH MANAGEMENT. 2. CONTINUE CURRENT MEDICATIONS PRESCRIBED. 3. ALL PATIENT QUESTIONS ANSWERED RELATED TO MEDICATIONS, PLAN OF CARE, AND EXPECTED OUTCOMES. 4. SAFETY PLAN DISCUSSED. JOSUE GOMEZ MD Nov 28, 2020 10:13
[2020-11-28] MEDS ORDERED: LANOLIN HYDROUS TP ONE (10:23)
[2020-11-28] MEDS ORDERED: VALIUM IM PRN (14:30)
--- NOTE | 2020-11-28 17:38 | NUR ---
PIRP P: ALTERED THOUGHT PROCESS, ALTERATION IN MOOD, FALL RISK, NONCOMPLIANCE WITH MEDICATION I: Q15 MIN MONITORING, ASSESS FOR PSYCHOTIC SYMPTOMS, GIVE CLEAR AND SIMPLE INSTRUCTIONS, PROVIDE TASK-ORIENTED ACTIVITIES, REINFORCE MEDICATION EDUCATION, SET CLEAR AND APPROPRIATE BOUNDARIES, ALTERNATE REST/ACTIVITY, PROVIDE 1:1 TO ENCOURAGE EXPRESSION OF FEELINGS, ASSESS REASONS FOR IRRITABILITY, REINFORCE FALL PREVENTION TECHNIQUES R: PT HAS MOSTLY PLEASANT AFFECT THROUGHOUT SHIFT, DOES EXHIBIT EPISODES OF IRRITABILITY AND INTRUSIVE, DEPENDENT-LIKE BEHAVIORS. HAS BEEN ABLE TO BE REDIRECTED WITH VERBALIZATION. PARTICIPATES IN GROUP ACTIVITIES WITH MINIMAL PROMPTING, HAS TAKEN MEDICATIONS ORDERED, AND HAS BEEN COOPERATIVE WITH ADLS. HAS NOT EXHIBITED THREATENING OR COMBATIVE BEHAVIORS THIS SHIFT. INITIATES INTERACTION WITH STAFF AND PEERS. DENIES FEELINGS OF DEPRESSION, DENIES SUICIDAL/HOMICIDAL IDEATION, NO HALLUCINATIONS NOTED. PT CONT TO EXHIBIT TANGENTIAL SPEECH, CONFABULATES AND EXHIBITS ECHOLALIA SPORADICALLY. REMAINS ALERT AND ORIENTED X 3. P: REINFORCE MEDICATION COMPLIANCE EDUCATION, USE CALM REASSURING APPROACH, ENCOURAGE PARTICIPATION IN OWN SELF-CARE
[2020-11-28 19:38] VITALS: BP 164/71
[2020-11-28] MEDS: ZYPREXA ZYDIS SL SCH (20:16)
[2020-11-28] MEDS: LIPITOR PO SCH (20:17)
[2020-11-29] MEDS: SYNTHROID PO SCH (05:46)
--- NOTE | 2020-11-29 05:54 | NUR ---
PIRP- P- ALTERATION IN MOOD ,ALTERATION IN THOUGHT PROCESS,NON MEDICATION COMPLIANCE AND FALL RISK. I- PROVIDE SAFE AND SUPPORTIVE ENVIRONMENT,PROVIDE MEDICATION ORDERED BY PHYSICIAN AND Q 15 MIN. MONITORING. REDIRECT NEEDED. R- PT. ORIENTED TIMES THREE. DENIES DEPRESSION AND ANXIETY. WAS ASSISTED WITH A SHOWER. PT. AMBULATES USING HER WALKER TOOK MEDICATION ORDERED. ATTENDED GROUP,DRANK FLUIDS, QUIET BUT RESPONDED TO APPROACH.DID NOT INITIATE INTERACTION. PARTICIPATED IN GROUP ACTIVITIES WHEN IT WAS HER TURN. REMAINS FALL RISK AND REFUSED TO WEAR NON SKID SOCK. RESTING IN BED WITH EYES CLOSED FOR 4.50 HOURS THIS SHIFT OF THIS TIME. P- WILL CONTINUE TO PROVIDE MEDICATION ORDERED BY PHYSICIAN. REDIRECT NEEDED. PROVIDE TEACHING ON FALL PRECAUTIONS.
[2020-11-29 08:54] VITALS: BP 154/72
[2020-11-29] MEDS: TOPROL XL PO SCH (09:11)
[2020-11-29] MEDS: ASPIRIN EC PO SCH (09:11)
[2020-11-29] MEDS: KEPPRA PO SCH ×2 (09:11→20:39)
[2020-11-29] MEDS: SINEMET 25/100 PO SCH ×3 (09:12→20:39)
[2020-11-29] MEDS: BUSPAR PO SCH ×2 (09:12→20:39)
[2020-11-29] MEDS: FLONASE NS SCH (09:12)
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
--- NOTE | 2020-11-29 17:04 | NUR ---
TELEMED PT WAS SEEN BY Alyson PANDEY NP. NO NEW ORDERS RECEIVED AT THIS TIME.
--- NOTE | 2020-11-29 17:35 | NUR ---
PIRP P: ALTERED THOUGHT PROCESS, FALL RISK I: Q15 MIN MONITORING, ASSESS FOR PSYCHOTIC SYMPTOMS, GIVE CLEAR AND SIMPLE INSTRUCTIONS, PROVIDE TASK-ORIENTED ACTIVITIES, REINFORCE MEDICATION EDUCATION, ALTERNATE REST/ACTIVITY, PROVIDE 1:1 TO ENCOURAGE EXPRESSION OF FEELINGS, REINFORCE FALL PREVENTION TECHNIQUES R: PT HAS PLEASANT, COOPERATIVE AFFECT THROUGHOUT SHIFT. HAS NOT EXHIBITED THREATENING, COMBATIVE, OR INTRUSIVE BEHAVIORS. DENIES FEELINGS OF DEPRESSION, ANXIETY, SI/HI. NO HALLUCINATIONS OR DELUSIONS NOTED. PARTICIPATES IN GROUP ACTIVITIES, TAKES MEDICATIONS ORDERED, AND IS COOPERATIVE WITH ADLS. APPEARS TO HAVE IMPROVED APPETITE THIS SHIFT, RESPONDS APPROPRIATELY TO APPROACH, AND INITIATES INTERACTION WITH STAFF. P: ALTERNATE REST/ACTIVITY, PROVIDE POSITIVE FEEDBACK ON APPROPRIATE BEHAVIOR
[2020-11-29 19:25] VITALS: BP 142/52
[2020-11-29] MEDS: ZYPREXA ZYDIS SL SCH (20:39)
[2020-11-29] MEDS: LIPITOR PO SCH (20:39)
--- NOTE | 2020-11-30 01:24 | NUR ---
pirp- P- ALTERATION IN THOUGHT PROCESS AND FALL RISK I- PROVIDE MEDICATION ORDERED BY PHYSICIAN AND Q 15 MIN. MONITORING. PROVIDE SAFE AND SUPPORTIVE ENVIRONMENT. R- PT. EXHIBITED PLEASANT AFFECT. ORIENTED TIMES THREE. DENIED FEELINGS OF DEPRESSION AND ANXIETY. ATTENDED GROUP,DID NOT EAT SNACKS BUT DRANK WATER. QUIET AND DID NOT INITIATE INTERACTION BUT RESPONDED TO APPROACH. TOOK MEDICATION ORDERED BY PHYSICIAN. NO HALLUCINATIONS OR DELUSIONS NOTED. NO INAPPROPRIATE BEHAVIORS NOTED. REMAINS FALL RISK AND REFUSES TO WEAR YELLOW NON SKID SOCKS. RESTING IN BED WITH EYES CLOSED AT THIS TIME. P- WILL CONTINUE TO PROVIDE MEDICATION ORDERED BY PHYSICIAN,SAFE AND SUPPORTIVE ENVIRONMENT,1:1 INTERVENTION ALLOWING PT. TO EXPRESS THOUGHTS AND FEELINGS.
[2020-11-30] MEDS: SYNTHROID PO SCH (06:06)
[2020-11-30 08:38] VITALS: BP 137/80
[2020-11-30] MEDS: TOPROL XL PO SCH (08:39)
[2020-11-30] MEDS: SINEMET 25/100 PO SCH ×3 (08:39→20:18)
[2020-11-30] MEDS: ASPIRIN EC PO SCH (08:39)
[2020-11-30] MEDS: KEPPRA PO SCH ×2 (08:39→20:18)
[2020-11-30] MEDS: BUSPAR PO SCH ×2 (08:39→20:18)
[2020-11-30] MEDS: FLONASE NS SCH (08:39)
--- NOTE | 2020-11-30 09:32 | NUR ---
MEDICATION PT SPIT OUT THE LEVETIRACETAM. RE PULLED OUT OF OMNI CELL AND PT TOOK THE MEDICATION.
--- NOTE | 2020-11-30 11:02 | PRM.PN ---
Mood: we can talk, I am at your mercy Sleep: 6.25 hours Appetite: light breakfast, my appetite has not changed Suidical thoughts: oh no, I don't wish I was , Homicidal thoughts: denies Recent stressors: no, why should I hurt anyone else? Family support: grand daughter Aggressive Behavior: can be intrusive, adds negative comments at time Ability to Perform ADL'sc: staff assist of 1 Psychotic sympstoms: not hallucinating, oriented Manic Symptoms: not physically aggressive Living situation: [facility] Family,PT,Surgical,&Current HX: (1) Delusional disorder (2) Neurocognitive disorder (3) Combative behavior Anxity Symptoms: denies, relaxes Anger/Irritablility: there will be always be angry, everyone gets angry Muscle Strength & Tone: Spastic Gait & Station: Ataxic (uses w/c) Appearance: Well groomed/hygience Attitude & Behaviour: Cooperative/Pleasant Mood & Affect: Blunted Orientation: Fully oriented per interv Attention/Concentration: Fair attention, Fair concentration Speech: Reg rate/vol/rhyth/prosod (she repeats questions before answering) Judgement/Insight: Fair judgement, Fair insight Thought Process: Linear/goal directed Language: Lithuanian Thought content/Abnormal/Psych: Delusions Fund of Knowledge: WNL Associations: Other Constitutional: None Neurological: None Psychiatric: Psychosis (perceptions not always consistently correct, ) [place] I: neurocognitive, delusional disorder [place] II: rule out PD Assessment/Plan Assessment/Plan Patient History: Patient reports no known family medical history. Plan Nursing' no name calling at current she will add negative comments to items- she is often with negative comment she likes to be in charge of her situation, she is now consistently taking her medications, but at the time she selects, she engages staff in conversations about herself, plan for discharge: return to [facility] grand daughter brought her to [facility], Vital Signs Date Time Temp Pulse Resp B/P (MAP) Pulse Ox O2 Delivery O2 Flow Rate FiO2 11/30/20 08:38 98.0 89 18 137/80 (99) 95 Current Medications Medications (Trade) Dose Ordered Sig/Stacy PRN Reason Start Time Stop Time Status Last Admin Diazepam (Valium) 10 mg Q10MIN PRN Seizure 11/28/20 14:30 12/28/20 14:29 Levothyroxine Sodium (Synthroid) 100 mcg ACB 11/28/20 06:30 12/28/20 06:29 11/30/20 06:06 Olanzapine (Zyprexa Zydis) 5 mg HS 11/27/20 21:00 12/27/20 20:59 11/29/20 20:39 Olanzapine (Zyprexa Zydis) 5 mg Q4HR PRN PSYCHOSIS 11/27/20 16:30 12/27/20 16:29 Olanzapine (Zyprexa) 10 mg Q6HR PRN psychosis 11/27/20 16:30 12/27/20 16:29 Summary: she is interested in conversing, even when appears she is resting,, oriented, not aggressive,, significant PD; chosen behaviors, CONSENT: Consent was obtained by patient for telemedicine visit. Consent was obtained for the presence of staff member throughout encounter. Privacy was maintained throughout encounter PLAN: 1. CONTINUE BEHAVIORAL HEALTH MANAGEMENT. Return to [facility] beginning of the week 2. CONTINUE CURRENT MEDICATIONS PRESCRIBED. STAFF AGREEABLE WITH PLAN 3. ALL PATIENT QUESTIONS ANSWERED RELATED TO MEDICATIONS, PLAN OF CARE, AND EXPECTED OUTCOMES. 4. SAFETY PLAN DISCUSSED. MARIAN PANDEY NP Nov 30, 2020 11:02
--- NOTE | 2020-11-30 12:29 | NUR ---
Telemedicine Patient seen by Jd Garcia NP, via telemedicine. No changes.
--- NOTE | 2020-11-30 15:39 | NUR ---
PIRP P: ALTERED THOUGHT PROCESS; NON-COMPLIANCE WITH MEDICATIONS; RISK FOR FALLS I: Monitor q 15 minutes; Provide safe supportive environment; Allow to express thoughts and feelings; Encourage appropriate interaction with others; Assess for depression, anxiety, SI/HI, delusions; Provide medications as ordered with explanation of need and purpose; Assess for adverse effects of medications; Provide Equipment for patient safety; R: Q 15 minute monitoring as logged; All non-patient areas locked, Exits secured, no obstructions; Patient uses a walker and assist, refuses yellow cheryle socks in lieu of wearing her own footwear; Taking all of her medications, takes a long time with the process, with much coaxing; Patient inserts herself inappropriately into others business, has been redirected; Denies depression, anxiety, SI/HI; Has delusions about her own abilities and her care; No adverse effects of medication therapy noted P: to [facility] on wednesday
[2020-11-30] MEDS: LIPITOR PO SCH (20:18)
[2020-11-30] MEDS: ZYPREXA ZYDIS SL SCH (20:18)
--- NOTE | 2020-12-01 05:22 | NUR ---
P.I.R.P. P. ALTERATION IN THOUGHT PROCESS I. PROVIDE EVERY 15 MINUTE OBSERVATION, SAFE ENVIRONMENT, MEDICATIONS ORDERED PER MD, PROVIDE 1:1 INTERVENTION TO ALLOW PATIENT PATIENT TO EXPRESS FEELINGS. REDIRECT NEEDED. R. PATIENT COMPLIANT WITH MEDICATIONS, PATIENT HAD NO PRN MEDICATIONS THIS SHIFT, PATIENT HAS BEEN PLEASANT AND COOPERATIVE WITH CARE. NO INTRUSIVE BEHAVIORS THIS SHIFT. P. CONTINUE CURRENT PLAN OF CARE Addendum: 12/01/20 at 0535 by ISAÍAS MckayBHSj HAM PATIENT CONTINUES TO DECLINE TO WEAR YELLOW SKID SOCKS. DOES WEAR SHOES FOR SAFETY.
[2020-12-01] MEDS: SYNTHROID PO SCH (05:58)
[2020-12-01] MEDS: SINEMET 25/100 PO SCH ×3 (08:56→20:14)
[2020-12-01] MEDS: ASPIRIN EC PO SCH (08:56)
[2020-12-01] MEDS: TOPROL XL PO SCH (08:56)
[2020-12-01] MEDS: KEPPRA PO SCH ×2 (08:56→20:13)
[2020-12-01] MEDS: BUSPAR PO SCH ×2 (08:57→20:13)
[2020-12-01] MEDS: FLONASE NS SCH (08:57)
[2020-12-01 09:14] VITALS: BP 150/69
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
--- NOTE | 2020-12-01 13:10 | NUR ---
Telemedicine Patient seen by advanced practice nurse Jd Garcia, for psychiatry. No changes.
--- NOTE | 2020-12-01 16:34 | NUR ---
PIRP P: ALTERED THOUGHT PROCESS; NON-COMPLIANCE WITH MEDICATIONS I: Provide a safe supportive environment; Monitor Q 15 minutes; Provide time for recreation; 1:1 with staff allowing for expression of thoughts and feelings; Encourage appropriate interactions with others; Medication as ordered by physician with assessment of need and purpose; Encourage self care, with a shower every other day; Assess for depression, anxiety and aggression towards others; R: Patient has been pleasant and cooperative today; took a shower with assist; took all of her medications; interacted with others with becoming intrusive. Denies depression and and anxiety; No aggression toward anyone, discussed topic with Jd Garcia [employer]NCIL[employer]; Patient up in the day room all day, spent time socializing and played a board game with GHANSHYAM Gann P: DC back to [facility] Wednesday or Wednesday
[2020-12-01 19:36] VITALS: BP 164/62
--- NOTE | 2020-12-01 19:45 | NUR ---
YELLOW NON SKID SOCKS. PATIENT CONTINUES TO REFUSE TO WEAR YELLOW NON SKID SOCKS, DOES WEAR HER SHOES FOR SAFET WITH AMBULATION
[2020-12-01] MEDS: LIPITOR PO SCH (20:13)
[2020-12-01] MEDS: ZYPREXA ZYDIS SL SCH (20:13)
--- NOTE | 2020-12-02 05:53 | NUR ---
P.I.R.P. P. ALTERATION IN THOUGHT PROCESS I. PROVIDE EVERY 15 MINUTE OBSERVATION, PROVIDE SAFE ENVIRONMENT, PROVIDE MEDICATIONS ORDERED PER MD, PROVIDE 1:1 INTERVENTION TO ALLOW PATIENT PATIENT TO EXPRESS FEELINGS. REDIRECT NEEDED. PROVIDE TASK ORIENTED GROUP ACTIVITY AND ENCOURAGE PARTICIPATION. R. PATIENT COMPLIANT WITH MEDICATIONS, PATIENT HAD NO PRN MEDICATIONS THIS SHIFT, PATIENT HAS BEEN PLEASANT AND COOPERATIVE WITH CARE. NO INTRUSIVE BEHAVIORS THIS SHIFT. DID INTERACT WITH OTHERS. P. CONTINUE CURRENT PLAN OF CARE.
[2020-12-02] MEDS: SYNTHROID PO SCH (06:10)
[2020-12-02 08:30] VITALS: BP 152/76
[2020-12-02] MEDS: SINEMET 25/100 PO SCH ×2 (09:35→15:22)
[2020-12-02] MEDS: KEPPRA PO SCH (09:36)
[2020-12-02] MEDS: TOPROL XL PO SCH (09:36)
[2020-12-02] MEDS: ASPIRIN EC PO SCH (09:37)
[2020-12-02] MEDS: BUSPAR PO SCH (09:37)
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
--- NOTE | 2020-12-02 09:41 | NUR ---
TELEMEDICINE PT WAS SEEN BY Alyson PANDEY NP AT THIS TIME. ASKED PARTS ASSEMBLER TO TRY FOR DC TODAY OR TOMORROW. PUT IN DC ORDERS. ASK WE CALL MEDICAL DR ALSO FOR REST OF DC ORDERS.
[2020-12-02] MEDS ORDERED: OLAN5TAB5 SL (09:49)
[2020-12-02] MEDS: FLONASE NS SCH (11:00)
--- NOTE | 2020-12-02 12:09 | NUR ---
DR MARIA GUADALUPE LERMA NOTIFIED OF POSSIBLE DISCHARGE TOMORROW AND NEED TO ADDRESS MEDICAL MEDS.
--- NOTE | 2020-12-02 14:42 | DIET.OP ---
Nutrition Asmt/Malnutrit 2-17 Actual Date of Review: Dec 02, 2020 Nutritional Screening: Nutritional Screening Diagnosis: Delusional Disorder Pertinent Medical Hx/Surgical: epilepsy, pacemaker, dementia, hypothyroidism Subjective Information: telehealth f/u- po intake varies, average of 70% of meals yesterday into today as well as snacks. Planned to be discharged back to SNF in the next few days. Pt reports her current po intake is consistent with her normal po amount. Pt a picky eater and likes things her way. A1c of 5.4. Current Diet Order/Nutrition S: Regular Diet Patient /S.O: Not Indicated Pertinent Meds Current Medications Medications (Trade) Dose Ordered Sig/Stacy Route PRN Reason Start Time Stop Time Status Last Admin Dose Admin Aspirin (Aspirin Ec) 81 mg DAILY PO 11/26/20 09:00 12/26/20 08:59 12/02/20 09:37 Carbidopa/Levodopa (Sinemet 25/100) 1 each TID PO 11/26/20 09:00 11/26/20 00:04 DC Fluticasone Propionate (Flonase) 1 sprays DAILY NS 11/26/20 09:00 12/22/20 00:00 12/02/20 11:00 Levothyroxine Sodium (Synthroid) 100 mcg DAILY PO 11/26/20 06:30 11/27/20 08:27 DC 11/27/20 08:21 Metoprolol Succinate (Toprol Xl) 25 mg DAILY PO 11/26/20 09:00 12/26/20 08:59 12/02/20 09:36 Lamotrigine (Lamictal) 50 mg HS PO 11/26/20 21:00 11/26/20 00:04 DC Lamotrigine (Lamictal) 100 mg DAILY PO 11/26/20 09:00 11/26/20 09:25 DC Buspirone HCl (Buspar) 5 mg STK-MED ONCE .ROUTE 11/26/20 00:00 11/26/20 00:00 DC Carbidopa/Levodopa (Sinemet 25/250 Tab) 1 each STK-MED ONCE .ROUTE 11/26/20 00:01 11/26/20 00:01 DC Primidone (Mysoline) 50 mg STK-MED ONCE .ROUTE 11/26/20 00:01 11/26/20 00:01 DC Carbidopa/Levodopa (Sinemet 25/100) 1 each TID PO 11/26/20 09:00 12/26/20 08:59 12/02/20 09:35 Lamotrigine (Lamictal) 50 mg HS PO 11/26/20 21:00 11/26/20 09:25 DC Atorvastatin Calcium (Lipitor) 10 mg HS PO 11/26/20 21:00 12/26/20 20:59 12/01/20 20:13 Lamotrigine (Lamictal) 50 mg OT ONCE PO 11/26/20 00:30 11/26/20 09:25 DC 11/26/20 00:30 Carbidopa/Levodopa (Sinemet 25/100) 1 each OT ONCE PO 11/26/20 00:30 11/26/20 03:13 DC 11/26/20 00:30 Primidone (Mysoline) 150 mg OT ONCE PO 11/26/20 00:30 11/26/20 03:08 DC 11/26/20 00:45 Buspirone HCl (Buspar) 5 mg BID PO 11/26/20 00:30 11/26/20 01:04 DC Buspirone HCl (Buspar) 5 mg BID PO 11/26/20 09:00 12/26/20 08:59 12/02/20 09:37 Buspirone HCl (Buspar) 5 mg OT ONCE PO 11/26/20 00:30 11/26/20 03:02 DC 11/26/20 00:30 Levothyroxine Sodium (Synthroid) 100 mcg STK-MED ONCE .ROUTE 11/26/20 06:11 11/26/20 06:11 DC Levetiracetam (Keppra) 1,000 mg STAT STAT PO 11/26/20 09:23 11/26/20 09:43 DC 11/26/20 10:00 Levetiracetam (Keppra) 500 mg BID PO 11/26/20 21:00 12/26/20 20:59 12/02/20 09:36 Potassium Chloride (Potassium Chloride) 40 meq STAT STAT PO 11/26/20 10:10 11/26/20 10:32 DC 11/26/20 11:07 Potassium Chloride (Klor-Con 10) 20 meq BID PO 11/26/20 21:00 11/27/20 22:00 DC 11/26/20 21:32 Levothyroxine Sodium (Synthroid) 100 mcg STK-MED ONCE .ROUTE 11/26/20 11:06 11/26/20 11:06 DC Levothyroxine Sodium (Synthroid) 100 mcg STK-MED ONCE .ROUTE 11/27/20 08:21 11/27/20 08:21 DC Levothyroxine Sodium (Synthroid) 100 mcg ACB PO 11/28/20 06:30 12/28/20 06:29 12/02/20 06:10 Olanzapine (Zyprexa Zydis) 5 mg HS SL 11/27/20 21:00 12/27/20 20:59 12/01/20 20:13 Olanzapine (Zyprexa) 10 mg Q6HR PRN IM psychosis 11/27/20 16:30 12/27/20 16:29 Olanzapine (Zyprexa Zydis) 5 mg Q4HR PRN SL PSYCHOSIS 11/27/20 16:30 12/27/20 16:29 Lanolin (Lanolin Hydrous) 28 gm STK-MED ONCE TP 11/28/20 10:23 11/28/20 10:24 DC Diazepam (Valium) 10 mg Q10MIN PRN IM Seizure 11/28/20 14:30 12/28/20 14:29 Height (Feet): 5 Height (Inches): 0 Current Weight: 114 Usual Weight: 105 %UBW: 109 %IBW: 115 Recent Weight Change: No (wt stable the last week) Weight Status: Appropriate Food Allergies: No Cultural/Ethnic/Episcopal Bobbi: None reported Current %PO: average of 70% with snacks Calories/Kcals/Kg: MsJ * 1.2-1.3 Kcals Calculated: 5590-1828 kcal Protein: Use Current Weight Protein g/k.8-1.0 g/kg Protein Calculated: 42g-52g Fluid: ml: 1561-0000 ml or 1ml/kcal Nutritional Problem: No Cur. Nutritional Probl Signs/Symptoms: po intake meeting her needs, po intake at her norm, wt stable RD Comments: 1. Continue regular diet, mechanical soft as needed for difficulty chewing. Encourage po intake at meals and snacks. 2. Monitor K, replace as needed. Expected Outcomes 60-100% po intake of most meals to meet nutrition needs. Discharge on regular diet Malnutrtion/Nutrition Risk Edu: No Notificiation Needed?: No Yecenia Lujan Dec 02, 2020 14:42
[2020-12-02] MEDS ORDERED: LEVO100T PO (18:53)
[2020-12-02] MEDS ORDERED: LEVE500T54 PO (18:53)
--- NOTE | 2020-12-02 19:25 | NUR ---
DISCHARGE PT DISCHARGED TO [facility] WITH STAFF FROM THE FACILITY. ALL BELONGINGS WERE WITH PT. PT WAS TAKEN DOWN BY W/C FOR SAFETY. PT WAS ALERT AND TALKATIVE WITH STAFF. RECOGNIZED [facility] STAFF. DISCHARGE PAPERWORK GIVEN TO THE STAFF OF [place].
[2020-12-02 19:31] VITALS: BP 152/76
== END 2020-12-02 19:25 | DRG 885 ==
LOC: ER 17:59 → EEVIPCON 21:02 → GP 21:02 → EDPENDDISTM 12-02 19:25 → EDPENDDISDT 12-02 19:25
PROVIDERS: ADMIT Psychiatry & Neurology Psychiatry; ATTEND Psychiatry & Neurology Psychiatry
DX: F22 Delusional disorders (principal); E87.1 Hypo-osmolality and hyponatremia; E87.8 Other disorders of electrolyte and fluid balance, not elsewhere classified; F63.81 Intermittent explosive disorder; Z66 Do not resuscitate; E87.6 Hypokalemia; E05.90 Thyrotoxicosis, unspecified without thyrotoxic crisis or storm; E03.9 Hypothyroidism, unspecified; F02.80 Dementia in other diseases classified elsewhere, unspecified severity, without behavioral disturbance, psychotic disturbance, mood disturbance, and anxiety; E78.00 Pure hypercholesterolemia, unspecified; F60.0 Paranoid personality disorder; R41.9 Unspecified symptoms and signs involving cognitive functions and awareness; G20 Parkinson's disease; G40.909 Epilepsy, unspecified, not intractable, without status epilepticus; I10 Essential (primary) hypertension; Z90.710 Acquired absence of both cervix and uterus; Z88.0 Allergy status to penicillin; Z88.5 Allergy status to narcotic agent; Z88.6 Allergy status to analgesic agent; Z88.8 Allergy status to other drugs, medicaments and biological substances; Z79.899 Other long term (current) drug therapy
CPT/HCPCS: 36415; 80048; 80053; 80061; 80299; 80307; 80320; 80345; 81000; 82306; 82550; 82553; 83036; 83880; 84443; 84484; 85025; 86592; 87086; 93005; 97150; 97166; 97530; 99285; G0378; J3490